=== PATIENT | female | born 2000 | race African-American/Black ===

== ENCOUNTER 2023-04-26 12:09 | Inpatient (IN) | payer OTHER ==
[~2023-04-26 12:09] MED LIST: Bupivacaine 0.25% HCL 30 ML VIAL ONE; ePHEDrine Sulfate 50 MG/10 ML VIAL ONE
[2023-04-26 19:25] VITALS: BMI 36.3
[2023-04-26] MEDS ORDERED: Promethazine HCl 25 MG/ML VIAL IM PRN (19:53)
[2023-04-26] MEDS ORDERED: hydrALAZINE 20 MG/ML VIAL SLOW IVP PRN (19:53)
[2023-04-26] MEDS ORDERED: Misoprostol 200 MCG TAB PR PRN (19:53)
[2023-04-26] MEDS ORDERED: Ibuprofen 800 MG TAB PO PRN (19:53)
[2023-04-26] MEDS ORDERED: Lidocaine 1% (PF) 30 ML VIAL SC PRN (19:53)
[2023-04-26] MEDS ORDERED: HYDROcodone/Acetaminophen 5/325 mg Tablet PO PRN (19:53)
[2023-04-26] MEDS ORDERED: Diphenoxylate HCl/Atropine Tablet PO PRN (19:53)
[2023-04-26] MEDS ORDERED: Acetaminophen 500 MG TAB PO PRN (19:53)
[2023-04-26] MEDS ORDERED: Ondansetron PF 4 MG/2 ML Vial IVP PRN (19:53)
[2023-04-26] MEDS ORDERED: Carboprost 250 MCG/ML AMP IM PRN (19:53)
[2023-04-26] MEDS ORDERED: Zolpidem Tartrate 5 MG TAB PO PRN (19:53)
[2023-04-26] MEDS ORDERED: fentaNYL 50 mcg/mL 1 mL Vial SLOW IVP PRN (19:53)
[2023-04-26] MEDS ORDERED: Oxytocin 30 units/NS 500 ML 500 ML IV SCH ×2 (20:00)
[2023-04-26] MEDS: Misoprostol 100 MCG TAB VAG SCH (20:24)
[2023-04-26] MEDS: Lactated Ringer's 1,000 ML IV SCH (20:24)
[2023-04-26 20:30] LABS: Hematocrit 37.2 % (34.9-44.5); Hemoglobin 12.8 g/dL (12.0-15.5); Mean Corpuscular HGB CONC 34.4 g/dL (32.0-36.0); Mean Corpuscular Hemoglobin 30.1 pg (27.0-33.0); Mean Corpuscular Volume 87.5 fl (81.6-98.3); Mean Platelet Volume 11.7 fl (7.4-10.4); Platelet Count 195 10x3/uL (150-450); RBC Distribution Width 13.6 % (11.5-14.5); Red Blood Cell (RBC) Count 4.25 10x6/uL (3.90-5.03); White Blood Cell (WBC) Count 11.6 10x3/uL (3.5-10.5)
[2023-04-26 20:44] LABS: ALT (SGPT) 22 U/L (8-55); AST (SGOT) 26 U/L (5-34); Albumin 3.5 g/dL (3.5-5.0); Alkaline Phosphatase 169 U/L (40-110); Anion Gap 17 mmol/L (10-20); BUN (Urea Nitrogen) 12 mg/dL (7.0-18.7); Bilirubin, Total 0.4 mg/dL (0.2-1.2); Calc. Creatinine Clearance 198 mL/min (70-130); Calcium 9.2 mg/dL (7.8-10.44); Carbon Dioxide 18 mmol/L (22-29); Chloride 106 mmol/L (98-107); Estimated GFR 128; Globulin 2.8 g/dL (2.4-3.5); Glucose 76 mg/dL (70-105); Potassium 3.8 mmol/L (3.5-5.1); Protein, Total 6.3 g/dL (6.0-8.3); Sodium 137 mmol/L (136-145)
[2023-04-26 21:01] LABS: HBSAg Index 0.17 S/CO (0-0.99); Hep B Surf Ag - L&D Non-Reactive S/CO (NonReactive)
[2023-04-26 21:03] LABS: Syphilis Antibody Nonreactive (Nonreactive); Syphilis Antibody Index 0.03 S/CO (<1.00 Non-Reactive)
[2023-04-27] MEDS: Misoprostol 100 MCG TAB VAG SCH ×3 (00:33→06:11)
[2023-04-27] MEDS ORDERED: fentaNYL/Ropivacaine Epidural 100 ML ONE (13:09)
[2023-04-27] MEDS ORDERED: ePHEDrine Sulfate 50 MG/10 ML VIAL SLOW IVP PRN (13:58)
[2023-04-27] MEDS ORDERED: Moisturizing Cream (Eucerin) 113 GM JAR TOP PRN (13:58)
[2023-04-27] MEDS ORDERED: Naloxone HCl 0.4 mg/ml Vial IVP PRN ×2 (13:58)
[2023-04-27] MEDS ORDERED: diphenhydrAMINE 50 MG/ML VIAL IVP PRN (13:58)
[2023-04-27] MEDS ORDERED: Promethazine HCl 25 MG/ML VIAL IM PRN (13:58)
[2023-04-27] MEDS ORDERED: Acetaminophen 325 MG TAB PO PRN (13:58)
[2023-04-27] MEDS ORDERED: Lactated Ringer's 500 ML IV PRN (13:58)
[2023-04-27] MEDS ORDERED: Ondansetron PF 4 MG/2 ML Vial IVP PRN (13:58)
[2023-04-27] MEDS ORDERED: fentaNYL 2 mcg/Ropivacaine 0.2% Epidural 100 ML CADD EPIDURAL SCH (14:00)
[2023-04-27] MEDS ORDERED: Communication Order-Pharmacy FS SCH (14:00)
[2023-04-28] MEDS ORDERED: hydrALAZINE 20 MG/ML VIAL SLOW IVP PRN (01:38)
[2023-04-28] MEDS ORDERED: Ondansetron PF 4 MG/2 ML Vial IVP PRN (01:38)
[2023-04-28] MEDS ORDERED: Promethazine HCl 25 MG/ML VIAL IM PRN (01:38)
[2023-04-28] MEDS ORDERED: HYDROcodone/Acetaminophen 5/325 mg Tablet PO PRN ×2 (01:38)
[2023-04-28] MEDS ORDERED: Bisacodyl 10 MG SUPP PR PRN (01:38)
[2023-04-28] MEDS ORDERED: Preparation H Ointment 28 GM TUBE PR PRN (01:38)
[2023-04-28] MEDS ORDERED: Benzocaine-Menthol 82.5 ML CAN TOP PRN (01:38)
[2023-04-28] MEDS ORDERED: Lanolin Ointment 7 GM TUBE TOP PRN (01:38)
[2023-04-28] MEDS ORDERED: Boostrix 0.5 ML (Tdap) VIAL (>/=7 yrs of age) IM ONE (01:38)
[2023-04-28] MEDS ORDERED: Milk Of Magnesia 30 ML UDCUP PO PRN (01:38)
[2023-04-28] MEDS ORDERED: diphenhydrAMINE 25 MG CAP PO PRN (01:38)
[2023-04-28] MEDS: Ibuprofen 800 MG TAB PO SCH ×3 (02:40→21:20)
[2023-04-28] MEDS: Prenatal Vitamin 1 TAB PO SCH (08:54)
[2023-04-28] MEDS: Docusate 100 MG CAP PO SCH ×2 (08:54→21:19)
[2023-04-28] MEDS: Ferrous Sulfate 325 MG TAB PO SCH ×2 (08:55→17:22)
[2023-04-28] MEDS: Misoprostol 100 MCG TAB VAG SCH ×2 (10:04→10:05)
[2023-04-28] MEDS: Lactated Ringer's 1,000 ML IV SCH (10:04)
[2023-04-29] MEDS: Ibuprofen 800 MG TAB PO SCH ×2 (05:45→14:57)
[2023-04-29] MEDS: Prenatal Vitamin 1 TAB PO SCH (07:56)
[2023-04-29] MEDS: Docusate 100 MG CAP PO SCH (07:57)
[2023-04-29] MEDS: Ferrous Sulfate 325 MG TAB PO SCH (10:14)
[2023-04-29 15:00] VITALS: BP 126/82; TEMP 98.2
== END 2023-04-29 15:05 | disposition home or self-care (01) | DRG 807 ==
LOC: CSHLD 18:53 → CSHPP 04-28 06:25
PROVIDERS: ADMIT Student in an Organized Health Care Education/Training Program; ATTEND Student in an Organized Health Care Education/Training Program
PROC: 10E0XZZ Delivery of Products of Conception, External Approach (ICD-10-PCS; principal; 2023-04-27)
PROC: 10907ZC Drainage of Amniotic Fluid, Therapeutic from Products of Conception, Via Natural or Artificial Opening (ICD-10-PCS; 2023-04-27)
PROC: 0HQ9XZZ Repair Perineum Skin, External Approach (ICD-10-PCS; 2023-04-27)
DX: O13.4 Gestational [pregnancy-induced] hypertension without significant proteinuria, complicating childbirth (principal); Z37.0 Single live birth; Z3A.37 37 weeks gestation of pregnancy; O99.284 Endocrine, nutritional and metabolic diseases complicating childbirth; E03.9 Hypothyroidism, unspecified; O70.0 First degree perineal laceration during delivery; Z79.890 Hormone replacement therapy; Z67.40 Type O blood, Rh positive
CPT/HCPCS: 36415; 51702; 80053; 85027; 86780; 86850; 86900; 86901; 87340; J2405; J2590; J7120; S0020